=== PATIENT | female | born 1970 | race Hispanic/Latino ===

== ENCOUNTER → 2018-10-29 | Day surgery (SDC) | payer BC ==
[~2018-10-29] MED LIST: ASPIR 8181 MG PO; CHOLESTEROL MED; DIABETES MED; GLIMEPIRIDE2 MG PO; INSULIN REGULAR, HUMAN 100 UNIT/1 ML 3ML VIAL ONE; JANUMET XR 1001 EACH PO; MIDAZOLAM HCL 2 MG/2 ML VIAL ONE; NIACIN100 MG PO; PROPOFOL IV EMULSION 10 MG/ML 50 ML VIAL ONE; SIMETHICONE 40 MG/0.6 ML BTL ONE
[2018-10-29 07:40] VITALS: BP 106/67
== END | disposition home or self-care (01) ==
LOC: OR 05:13
PROVIDERS: ATTEND Internal Medicine Gastroenterology
DX: Z12.11 Encounter for screening for malignant neoplasm of colon (principal); K64.8 Other hemorrhoids; E78.5 Hyperlipidemia, unspecified; Z71.3 Dietary counseling and surveillance; E11.9 Type 2 diabetes mellitus without complications; E66.9 Obesity, unspecified; Z79.82 Long term (current) use of aspirin; Z79.84 Long term (current) use of oral hypoglycemic drugs; Z68.31 Body mass index [BMI] 31.0-31.9, adult
CPT/HCPCS: 36415; 45378; 81025; 82948; J2250; J2704